=== PATIENT | male | born 1980 | race Caucasian/White ===

== ENCOUNTER 2017-01-31 16:03 | Inpatient (IN) | payer BC, OTHER ==
--- NOTE | 2017-01-31 16:59 | ED ---
Psych HPI - General Chief Complaint: Psychiatric Symptoms Stated Complaint: Psych - Suicidal Time Seen by Provider: 01/31/17 16:40 Source: patient, family, RN notes reviewed Mode of arrival: ambulatory - History of Present Illness Initial Comments: This is a 36-year-old male with history depression who has been having cyclic episodes of depression about every 3 weeks who states she's been in a very depressed state over last 2-3 days and has had thoughts of suicide though no apparent complaints this time. He does drink an occasional beer no street drugs are involved. He has no other medical problems. He currently is on medication he states he just feels profoundly depressed. MD Complaint: suicidal ideation, feels depressed - Related Data Home Medications Medication Instructions Recorded Confirmed Dextroamphetamine/Amphetamine 30 mg PO QAM 01/31/17 01/31/17 [Adderall Xr] Dextroamphetamine/Amphetamine 20 mg PO DAILY@1400 01/31/17 01/31/17 [Adderall] Venlafaxine HCl [Effexor XR] 150 mg PO DAILY 01/31/17 01/31/17 Allergies Allergy/AdvReac Type Severity Reaction Status Date / Time No Known Allergies Allergy Verified 06/24/15 13:04 Review of Systems ROS Statement: Those systems with pertinent positive or pertinent negative responses have been documented in the HPI. ROS Other: All systems not noted in ROS Statement are negative. 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 Absent: scleral icterus, conjunctival injection, periorbital swelling ENT exam: Present: normal exam, mucous membranes moist Neck exam: Present: normal inspection. Absent: tenderness, meningismus, lymphadenopathy Respiratory exam: Present: normal lung sounds bilaterally. Absent: respiratory distress, wheezes, rales, rhonchi, stridor Cardiovascular Exam: Present: regular rate, normal rhythm, normal heart sounds. Absent: systolic murmur, diastolic murmur, rubs, gallop, clicks GI/Abdominal exam: Present: normal bowel sounds. Absent: distended, tenderness , guarding, rebound, rigid Extremities exam: Present: normal inspection, full ROM, normal capillary refill. Absent: tenderness, pedal edema, joint swelling, calf tenderness Back exam: Present: normal inspection Neurological exam: Present: alert, oriented X3, CN II-XII intact Psychiatric exam: Present: depressed, suicidal ideation Skin exam: Present: warm, dry, intact, normal color. Absent: rash Course Vital Signs 01/31/17 01/31/17 16:09 20:00 Temperature 98.2 F Pulse Rate 78 71 Respiratory 16 18 Rate Blood Pressure 129/89 111/66 O2 Sat by Pulse 98 96 Oximetry Medical Decision Making - Medical Decision Making Patient was evaluated by psychiatric service she will be admitted for inpatient treatment. Disposition Clinical Impression: Depression, Suicidal ideation Disposition: TRANSFER TO PSYCH HOSP/UNIT Condition: Stable
[2017-01-31] MEDS ORDERED: MAG HYDROX/AL HYDROX/SIMETH 30 ML CUP PO PRN (20:06)
[2017-01-31] MEDS ORDERED: MAGNESIUM HYDROXIDE 2,400 MG/10 ML CUP PO PRN (20:06)
[2017-01-31] MEDS ORDERED: ACETAMINOPHEN TAB 325 MG TAB PO PRN (20:06)
[2017-01-31] MEDS ORDERED: LORazepam 1 MG TAB PO PRN (20:08)
[2017-01-31] MEDS: NICOTINE 21MG/24HR PATCH TRANSDERM SCH (21:49)
[2017-02-01 02:14] VITALS: BMI 23.1
[2017-02-01] MEDS ORDERED: VENLAFAXINE HCL ER 150 MG CAP PO SCH (09:00)
--- NOTE | 2017-02-01 09:34 | P.HP ---
Psychiatric H&P - . History & Physical: Allergies Allergy/AdvReac Type Severity Reaction Status Date / Time No Known Allergies Allergy Verified 02/01/17 02:15 Vital Signs Temp 97.8 F 02/01/17 06:32 Pulse 62 02/01/17 06:32 Resp 16 02/01/17 06:32 BP 115/59 02/01/17 06:32 Pulse Ox 96 01/31/17 20:00 Intake & Output 01/31/17 02/01/17 02/01/17 18:59 06:59 18:59 Weight 86.183 kg Laboratory Last Values Urine Opiates Screen Not Detected (NotDetected) 01/31/17 19:46 Ur Oxycodone Screen Not Detected (NotDetected) 01/31/17 19:46 Urine Methadone Screen Not Detected (NotDetected) 01/31/17 19:46 Ur Propoxyphene Screen Not Detected (NotDetected) 01/31/17 19:46 Ur Barbiturates Screen Not Detected (NotDetected) 01/31/17 19:46 U Tricyclic Antidepress Not Detected (NotDetected) 01/31/17 19:46 Ur Phencyclidine Scrn Not Detected (NotDetected) 01/31/17 19:46 Ur Amphetamines Screen Detected (NotDetected) H 01/31/17 19:46 U Methamphetamines Scrn Not Detected (NotDetected) 01/31/17 19:46 U Benzodiazepines Scrn Not Detected (NotDetected) 01/31/17 19:46 Urine Cocaine Screen Not Detected (NotDetected) 01/31/17 19:46 U Marijuana (THC) Screen Not Detected (NotDetected) 01/31/17 19:46 02/01/17 09:21 IDENTIFYING DATA: This patient is a 36-year-old male who was admitted through the emergency room for suicidal ideation and worsening symptoms of depression. HPI: The patient presented reporting worsening symptoms of depression over the last 6 months. He states that he has been tearful on a regular basis, has had less energy, and has been intermittently dealing with suicidal thoughts. The day prior to this presentation he had barricaded himself in the bathroom during an argument with his he made suicidal statements. Later he jumped out of the second story window of his home and went out into the [facility] for the evening and came back the next morning. He states that there have been several stressors at home including frequent arguments with his , significant financial constraints, and his was newly diagnosed with multiple sclerosis. He has been working with a psychiatrist a Dr. Argueta and feels that the Effexor XR has provided some benefit but clearly not enough at this point. He feels it was working for the last year but his depressive symptoms have come back in an insidious fashion. He states his sleep is been adequate at night appetite is been stable. He reports having social anxiety in context where he needs to share personal information. He states he has come a long way in terms of his social anxiety and is doing quite well in his work environment. He endorses no panic attacks. He endorses no hypomanic or manic episodes. He reports having no auditory or visual hallucinations he reports no specific delusions as we reviewed several types. No obsessive-compulsive thoughts or actions. He denies having any thoughts of harming others. He does have firearms at home as he and his are hunters. PAST PSYCHIATRIC HISTORY: Her inpatient psychiatric care, no history of suicide attempts. He is working with a psychiatrist in [place], Dr. Argueta. He is prescribed Effexor XR 150 mg daily he has been on that for 1 year, he is also on Adderall 30 mg in the morning and 20 mg in the afternoon and has been on that one year. It's unclear if he has an ADHD diagnosis he states he takes it "to improve my energy". He reports being on numerous other psychotropics in the past however he can only recall Zoloft. He is not yet working with an individual therapist but feels that could be beneficial and would like to do marital counseling as well. PMH: None reported ALLERGIES: NO KNOWN DRUG ALLERGIES MEDICATIONS: As above CHEMICAL DEPENDENCY HISTORY: He reports using alcohol daily having 1 beer after work during the weeknights and he states he will have approximately 12 beers on the weekends, no use of marijuana no use of other illicit drugs he has never been placed in residential treatment for chemical dependency reasons. FAMILY PSYCHIATRIC HISTORY: None reported, no suicides in the family FAMILY CHEMICAL DEPENDENCY HISTORY: None reported SOCIAL HISTORY: The patient is a 36-year-old male he has been for approximately 4 years he states his marriage is "it's a marriage". He indicates that they frequently have verbal altercations over a variety of reasons. He has 2 children both sons and a stepson that resides with them part of the time. 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 He reports that he was going to a trade program which has recently ended and he has just returned a $10 an hour increase. 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 No service. In terms of siblings he has a half-sister. He is originally from the [place] he was raised there. He endorses no legal history, he endorses no abuse history. MENTAL STATUS EXAM: The patient is a tall thin male appearing his stated age. His hair is shaved short eye contact is appropriate hygiene grooming adequate he is dressed in his own clothing. Speech is fluent spontaneous nonpressured. He endorses a depressed mood he has recently made suicidal statements but states "I would never do it" he reports no homicidal ideation intent or plan. He endorses no auditory or visual hallucinations and no specific delusions. He endorses no racing thoughts and he does not appear hypomanic or manic. Thought process is linear he demonstrates no circumstantial thought tangential thinking loose associations or flight of ideas. Insight and judgment grossly intact. He is reserved and guarded he expresses several times that he is uncomfortable talking about his personal information. Cognitively he is oriented to person place and date he is able to spell world backwards he is capable of remembering 3 objects after a brief delay. He demonstrates no verbal or physical aggressiveness. His affect remains bland throughout the session except towards the end of the session when he is tearful. STRENGTHS/WEAKNESSES: Strengths: Housing, income, willingness to be voluntarily treated weaknesses: Psychosocial dysfunction due to depressive symptoms INTELLECTUAL FUNCTIONING: Average IMPRESSIONS: [] 1. Major depressive disorder recurrent severe without psychosis, rule out ADHD 2. Stressors include marital discord, financial constraints, 's recent diagnosis of multiple sclerosis PLAN: The patient has been admitted to the mental health unit he has signed in voluntarily. We reviewed his presenting symptoms and medication options. We will increase the Effexor XR to 225 mg daily. We discussed also augmenting with Wellbutrin XL but he prefers to defer that decision to his outpatient psychiatrist. Social work will meet with the patient and complete a psychosocial assessment and begin discharge planning. We will arrange a support meeting likely including his . We will monitor him for safety and encourage his participation in the milieu. Laboratory studies and vital signs reviewed. He will undergo routine medical consultation with the turbinated bone grinder. We will discuss his use of alcohol during the hospitalization and we will address the presence of firearms in the home.
[2017-02-01] MEDS: NICOTINE 21MG/24HR PATCH TRANSDERM SCH (10:25)
[2017-02-01] MEDS: VENLAFAXINE HCL ER 75 MG CAP PO SCH (10:25)
[2017-02-01 11:02] LABS: Basophils # (A) 0.1 k/uL (0-0.2); Basophils % (A) 1 %; CH 32.3; CHCM 32.5; Eosinophils # (A) 0.1 k/uL (0-0.7); Eosinophils % (A) 2 %; HCT 46.7 % (39.0-53.0); HDW 2.52; HGB 15.2 gm/dL (13.0-17.5); Luc # (Auto) 0.14; Luc % (Auto) 3; Lymphocytes # (A) 1.5 k/uL (1.0-4.8); Lymphocytes % (A) 28 %; MCH 32.6 pg (25.0-35.0); MCHC 32.5 g/dL (31.0-37.0); MCV 100.1 fL (80.0-100.0); Monocytes # (A) 0.4 k/uL (0-1.0); Monocytes % (A) 7 %; Neutrophils # (A) 3.1 k/uL (1.3-7.7); Neutrophils % (A) 60 %; RBC 4.67 m/uL (4.30-5.90); RDW 13.6 % (11.5-15.5); WBC 5.3 k/uL (3.8-10.6); WBC (Perox) 5.33
[2017-02-01 11:25] LABS: ALT 39 U/L (21-72); AST 25 U/L (17-59); Alkaline Phosphatase 83 U/L (38-126); Anion Gap 9 mmol/L; Blood Urea Nitrogen 18 mg/dL (9-20); Calcium 9.9 mg/dL (8.4-10.2); Carbon Dioxide 29 mmol/L (22-30); Chloride 104 mmol/L (98-107); Glucose 104 mg/dL (74-99); Non-African American GFR(MDRD) >60 (>60 ml/min/1.73 sqM); Sodium 142 mmol/L (137-145); Total Protein 7.2 g/dL (6.3-8.2)
--- NOTE | 2017-02-01 23:11 | CONS ---
DATE OF CONSULTATION: 02/01/2017 REASON FOR CONSULTATION: Medical management requested by Dr. Del Valle. CONSULTATION: This is a pleasant 36-year-old patient of Dr. Diop. Patient has a history of depression in the past. Patient was having trouble with his and financial issues. has been diagnosed with MS. Patient presented with major depression and suicidal ideations, admitted for the same. Patient has a history of splenectomy. Patient is a smoker. REVIEW OF SYSTEMS: CONSTITUTIONAL: None. HEENT: None. RESPIRATORY: None. CARDIOVASCULAR: None. GASTROINTESTINAL: None. GENITOURINARY: None. MUSCULOSKELETAL: Some lower back pain. DERMATOLOGICAL: Tattoos. HEMATOLOGICAL: None. LYMPHATICS: None. PSYCHIATRY: Depression. NEUROLOGICAL: None. PAST MEDICAL HISTORY: 1. Chronic low back pain. 2. Depression. PAST SURGICAL HISTORY: 1. Splenectomy. 2. Lower back surgery. SOCIAL HISTORY: Smokes a pack to a pack and a half a day. Drinks variable amounts of beer. . Employed at local [employer] HOME MEDICATIONS: 1. Effexor XR 150 mg a day. 2. Adderall 20 mg daily at 2 p.m. and 30 mg in the morning. ALLERGIES: NONE. On examination, temperature 97.8, pulse 82, respiration 16, blood pressure 115/59, pulse ox 96% on room air. GENERAL APPEARANCE: Average build. Lying in bed. Not in distress. EYES: Pupils equal. Conjunctivae normal. HEENT: Oral cavity normal. NECK: JVD not raised. Mass not palpable. RESPIRATORY: Effort normal. LUNGS: Fair air entry. CARDIOVASCULAR: First and second sounds normal. No edema. ABDOMEN: Soft, nontender. Liver and spleen not palpable. LYMPHATIC: No lymph node palpable in neck or axillae. PSYCHIATRY: Alert and oriented x3. Mood and affect slightly anxious-appearing. NEUROLOGICAL: Pupils equal. Cranial nerves grossly intact. Power and sensation grossly intact. INVESTIGATIONS: White count 5.3, hemoglobin 15.2. Urine drug screen positive for amphetamines. ASSESSMENT: 1. Major depressive disorder, recurrent, with no psychotic features. 2. Splenectomy, history of. 3. Chronic nicotine dependence with cigarettes. PLAN: Patient advised against smoking, given a nicotine patch. Antidepressants per Dr. Del Valle. Patient should follow up with Dr. Diop upon discharge. Thank you, Dr. Del Valle.
[2017-02-02 06:39] VITALS: BP 128/73; PULSE 65; RESP 18; TEMP 98
--- NOTE | 2017-02-02 09:19 | P.DS ---
Providers Date of admission: 01/31/17 20:02 Expected date of discharge: 02/02/17 Attending physician: Paddy Del Valle Consults: 01/31/17 20:06 Consult Physician Routine Consulting Provider: Guillermo Armando Consult Reason/Comments: H and P Do you want consulting provider notified?: Yes Primary care physician: Tejas Diop - Discharge Diagnosis(es) (1) Major depressive disorder, recurrent severe without psychotic features Current Visit: Yes Status: Acute Priority: High Hospital Course: Brief summary of admission note: This patient is a 36-year-old male who was admitted through the emergency room to the mental health unit for suicidal ideation and worsening symptoms of depression. The patient reported symptoms of depression worsening over the last 6 months he reported being tearful reporting less energy and overwhelmed with stressors. Him and his had been enduring financial strain over the last several months and he reports they have been frequently arguing. Additionally she was diagnosed with multiple sclerosis. The patient has been working with an outpatient psychiatrist, Dr. Argueta. He had been placed on Effexor XR about 1 year ago and felt that it was helpful but seems to have lost some affect. For full details please refer to my psychiatric evaluation dated 02/01/2017. Summary of hospital course: The patient was admitted to the mental health unit he did sign in voluntarily. Yesterday however he did sign the form withdrawing his voluntary status. We did review his presenting symptoms we decided to continue the Effexor XR and titrate the dose to 225 mg. We discussed the possibility of augmenting with Wellbutrin XL but he preferred not to. He states that he would never act on any suicidal thinking and he admits that he had been making those statements to "get some help". He feels uncomfortable in this environment and feels that he needs to work with an individual therapist and his outpatient psychiatrist further. The patient's did not attend groups he demonstrated no agitated behavior he has been pleasant and cooperative. He did undergo routine medical consultation. Social work has spoken with his and his is also coming up for a support meeting scheduled for this morning. We discussed the patient's use of alcohol and recommended that he discontinue alcohol use. He does not feel that he requires inpatient chemical dependency treatment. He reported that he had firearms in the home social work has spoken with his and she has told social work that the weapons have been removed. Mental status exam: The patient is a tall thin male he seated calmly eye contact is appropriate. He states his mood is "fine" he maintains a constricted affect. There is no tearfulness he does not appear dysphoric. He reports having no suicidal or homicidal ideation intent or plan. He states he regrets making those statements as he does not need to be in this environment. He reports no auditory or visual hallucinations he endorses no specific delusions. He endorses no racing thoughts there is no evidence of hypomanic or manic symptoms. He demonstrates no verbal or physical aggressiveness. He is pleasant and cooperative throughout the interview. He remains oriented to person place and date he remains grossly cognitively intact. Thinking is linear there is no evidence of tangential thinking loose associations or flight of ideas. Impressions 1. Major depressive disorder recurrent severe without psychosis, rule out ADHD , rule out alcohol use disorder 2. Psychosocial stressors include marital discord, financial concerns, 's diagnosis of multiple sclerosis Plan: The patient will be discharged mental health unit today following a successful meeting with his facilitated by social work. He will continue on Effexor XR 225 mg daily. He plans to follow-up with his outpatient psychiatrist Dr. Argueta. He is encouraged to work with an individual therapist and he wants to also do marital counseling. Social work will help arrange his outpatient follow-up. He is instructed not to use any alcohol. There is no imminent safety risk he is appropriate for transition outpatient care. He is instructed to return to the hospital with any acute safety concerns. The patient has been prescribed a total of 50 mg of Adderall per day. This was not continued on the mental health unit. His outpatient psychiatrist has been managing that medication. Patient Condition at Discharge: Stable Plan - Discharge Summary New Discharge Prescriptions: Nicotine 21Mg/24Hr Patch [Habitrol] 1 patch TRANSDERM DAILY #14 patch Venlafaxine HCl ER [Effexor XR] 225 mg PO DAILY #90 cap.er.24h Discharge Medication List Venlafaxine HCl [Effexor XR] 150 mg PO DAILY 01/31/17 [History] Nicotine 21Mg/24Hr Patch [Habitrol] 1 patch TRANSDERM DAILY #14 patch 02/02/17 [ Rx] Venlafaxine HCl ER [Effexor XR] 225 mg PO DAILY #90 cap.er.24h 02/02/17 [Rx] Follow up Appointment(s)/Referral(s): Tejas Diop MD [Primary Care Provider] - 1 Week
[2017-02-02] MEDS: VENLAFAXINE HCL ER 75 MG CAP PO SCH (09:25)
[2017-02-02] MEDS: NICOTINE 21MG/24HR PATCH TRANSDERM SCH (09:27)
== END 2017-02-02 12:18 | disposition home or self-care (01) | DRG 885 ==
LOC: EC 16:03 → 3MHU 20:02
PROVIDERS: ADMIT Psychiatry & Neurology Psychiatry; ATTEND Psychiatry & Neurology Psychiatry
DX: F33.2 Major depressive disorder, recurrent severe without psychotic features (principal); R45.851 Suicidal ideations; F17.210 Nicotine dependence, cigarettes, uncomplicated
CPT/HCPCS: 80053; 80306; 82075; 84443; 85025; 99285

== ENCOUNTER 2023-03-09 20:53 | Emergency (ER) | payer BC, OTHER ==
[2023-03-09] MEDS ORDERED: SODIUM CHLORIDE 0.9% 500 ML 500 ML IV STA (21:11)
[2023-03-09] MEDS ORDERED: HYDROmorphone 1 MG/ML 1 ML SYRINGE IVP STA ×2 (21:11→23:17)
--- NOTE | 2023-03-09 22:04 | CT ---
EXAMINATION TYPE: CT lumbar spine wo con CT DLP: 1550.5 mGycm, Automated exposure control for dose reduction was used. DATE OF EXAM: 03/09/2023 9:38 PM COMPARISON: None CLINICAL INDICATION:Male, 42 years old with history of fall from horse;, fell from and pinned by hors e. back pain TECHNIQUE: Multiple axial images were obtained from the midportion of T11 through the sacroiliac mabel nts. Soft tissue and bone windows in coronal and sagittal planes were obtained and reviewed. 3-D ref ormats of the bones were created on a separate workstation and submitted for review. Contrast used: none. Oral contrast used: none. FINDINGS: Alignment: There are 5 lumbar type vertebral bodies within normal alignment. Bone: Acute fracture through the L1 superior endplate which extends into the anterior aspect of the L 1 vertebral body. There is less than 20% height loss no evidence of retropulsion or significant spina l canal or neural foraminal stenosis. No additional fractures definitively visualized. There is mild osteophyte formation and degeneration with Schmorl's nodes and endplate sclerosis throughout the spin e. Postsurgical changes with hardware in place. Hardware appears intact there is fixation screws from L3 to S1. Discectomy changes at L4-L5 and L5-S1. Discs: T12-L1: No spinal canal or neural foraminal stenosis is identified. L1-L2: No spinal canal or neural foraminal stenosis is identified. L2-L3: No spinal canal or neural foraminal stenosis is identified. L3-L4: No spinal canal is identified. Bilateral mild to moderate neural foraminal stenosis secondary to facet joint arthropathy and osteophyte formation. L4-L5: No spinal canal or neural foraminal stenosis is identified. L5-S1: No spinal canal or neural foraminal stenosis is identified. Other: None IMPRESSION: Acute fracture of the L1 vertebral body with less than 20% height loss. No retropulsion of significan t spinal canal or neural foraminal stenosis.
[2023-03-09 23:28] VITALS: BP 129/80; PULSE 84; RESP 19
--- NOTE | 2023-03-09 23:43 | ED ---
Back Pain HPI - General Chief Complaint: Back Pain/Injury Stated Complaint: Lower back pain Time Seen by Provider: 03/09/23 20:59 Source: patient Limitations: no limitations - History of Present Illness Initial Comments: This patient is a 42-year-old man who presents to have evaluation after he states he was injured by a horse. Patient states this happened just prior to coming here. The patient relates he was attempting to the horse trailer, when the horse knocked him into the wall of it. The patient denies weakness or numbness of the extremities. No saddle anesthesia. Has not noted bladder or bowel changes. Complains of lumbar pain worse with movement. MD Complaint: back pain -: hour(s) Similar Symptoms Previously: No Place: other Radiation: none Severity: severe Quality: sharp Consistency: constant Improves With: immobilization Worsens With: movement Context: other Associated Symptoms: denies other symptoms - Related Data Home Medications Medication Instructions Recorded Confirmed Venlafaxine HCl [Effexor XR] 150 mg PO DAILY 01/31/17 02/01/17 Previous Rx's Medication Instructions Recorded Nicotine 21Mg/24Hr Patch [Habitrol] 1 patch TRANSDERM DAILY #14 patch 02/02/17 Venlafaxine HCl ER [Effexor XR] 225 mg PO DAILY #90 cap.er.24h 02/02/17 HYDROcodone/APAP 7.5-325MG [[place] 1 tab PO Q4H PRN 3 Days #18 tab 03/09/23 7.5-325] Allergies Allergy/AdvReac Type Severity Reaction Status Date / Time No Known Allergies Allergy Verified 02/01/17 02:15 Review of Systems ROS Statement: Those systems with pertinent positive or pertinent negative responses have been documented in the HPI. ROS Other: All systems not noted in ROS Statement are negative. Constitutional: Denies: fever Respiratory: Denies: cough, dyspnea Cardiovascular: Denies: chest pain, syncope Gastrointestinal: Denies: abdominal pain, vomiting, diarrhea, constipation Genitourinary: Denies: dysuria, hematuria, testicular pain Musculoskeletal: Reports: as per HPI, back pain Skin: Denies: rash Neurological: Denies: headache, weakness, numbness, paresthesias Past Medical History Past Medical History: No Reported History Additional Past Medical History / Comment(s): chronic back pain, fusion lower back History of Any Multi-Drug Resistant Organisms: None Reported Past Surgical History: Back Surgery 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 Absent: scleral icterus, conjunctival injection Neck exam: Present: normal inspection, full ROM. Absent: tenderness Respiratory exam: Present: normal lung sounds bilaterally. Absent: respiratory distress, wheezes, rales, rhonchi, stridor Cardiovascular Exam: Present: regular rate, normal rhythm, normal heart sounds. Absent: systolic murmur, diastolic murmur, rubs, gallop GI/Abdominal exam: Present: soft. Absent: distended, tenderness, guarding, rebound, rigid, mass, pulsatile mass Extremities exam: Present: normal inspection, normal capillary refill. Absent: pedal edema, calf tenderness Back exam: Present: normal inspection, paraspinal tenderness, vertebral tenderness, other (The patient has tenderness to palpation at approximately the L1-L2 level. There is no apparent step-off.). Absent: CVA tenderness (R), CVA tenderness (L) Neurological exam: Present: alert, reflexes normal. Absent: motor sensory deficit Skin exam: Present: warm, dry, intact, normal color. Absent: rash Course Vital Signs 03/09/23 03/09/23 03/09/23 20:54 21:16 22:12 Pulse Rate 92 94 91 Respiratory 18 18 18 Rate Blood Pressure 116/92 116/92 122/72 O2 Sat by Pulse 96 97 97 Oximetry 03/09/23 23:27 Pulse Rate 84 Respiratory 19 Rate Blood Pressure 129/80 O2 Sat by Pulse 98 Oximetry Medical Decision Making - Medical Decision Making This patient is 42-year-old man with back pain after injury by horse. The patient had analgesic provided after history and physical. The patient went for computed tomography scan of the low back which I interpreted to reveal some compression fracture of the L1 vertebra. No evident intrusion into spinal canal. I did discuss the case with orthopedic surgery on-call. They will have patient follow in the clinic seeing the back specialist. I discussed appropriate further care and follow-up as well as return parameters. The patient did have good relief with analgesia here. Was pt. sent in by a medical professional or institution (KELLY Lancaster, DIET SUPERVISOR, urgent care, hospital, or custodial...) When possible be specific @ -[No] Did you speak to anyone other than the patient for history (EMS, parent, family, police, friend...)? What history was obtained from this source @ -[No] Did you review nursing and triage notes (agree or disagree)? Why? @ -[I reviewed and agree with nursing and triage notes] Were old charts reviewed (outside hosp., previous admission, EMS record, old EKG, old radiological studies, urgent care reports/EKG's, custodial records)? Report findings @ -[No old charts were reviewed] Differential Diagnosis (chest pain, altered mental status, abdominal pain women, abdominal pain men, vaginal bleeding, weakness, fever, dyspnea, syncope, headache, dizziness, GI bleed, back pain, seizure, CVA, palpatations, mental health, musculoskeletal)? @ -[Differential Back Pain: Strain, zoster, cauda equina syndrome, epidural abscess, vertebral osteomyelitis, discitis, fracture, subluxation, disc herniation, DJD, spinal stenosis, dissection, AAA, pancreatitis, peptic ulcer disease, pyelonephritis, kidney stone, this is not meant to be an all-inclusive list. EKG interpreted by me (3pts min.). @ -[ X-rays interpreted by me (1pt min.). @ -[None done] CT interpreted by me (1pt min.). @ -[As above U/S interpreted by me (1pt. min.). @ -[None done] What testing was considered but not performed or refused? (CT, X-rays, U/S, labs)? Why? @ -[None] What meds were considered but not given or refused? Why? @ -[None] Did you discuss the management of the patient with other professionals (professionals i.e. KELLY Lancaster, DIET SUPERVISOR, lab, RT, psych nurse, licensed social worker, process safety manager, teacher, toxics program officer, case fitter)? Give summary @ -[Case is discussed with orthopedics secondary special education teacher Was smoking cessation discussed for >3mins.? @ -[No] Was critical care preformed (if so, how long)? @ -[No] Were there social determinants of health that impacted care today? How? (Homelessness, low income, unemployed, alcoholism, drug addiction, transportation, low edu. Level, literacy, decrease access to med. care, halfway, rehab)? @ -[No] Was there de-escalation of care discussed even if they declined (Discuss DNR or withdrawal of care, Hospice)? DNR status @ -[No] What co-morbidities impacted this encounter? (DM, HTN, Smoking, COPD, CAD, Cancer, CVA, ARF, Chemo, Hep., AIDS, mental health diagnosis, sleep apnea, morbid obesity)? @ -[None] Was patient admitted / discharged? Hospital course, mention meds given and route, prescriptions, significant lab abnormalities, going to OR and other pertinent info. @ -[Discharged after the case was discussed with orthopedics and the patient did have significant symptomatic relief. Appropriate further care and follow-up discussed. Return parameters discussed Undiagnosed new problem with uncertain prognosis? @ -[No] Drug Therapy requiring intensive monitoring for toxicity (Heparin, Nitro, Insulin, Cardizem)? @ -[No] Were any procedures done? @ -[No] Diagnosis/symptom? @ -[Acute L1 lumbar fracture, uncomplicated Acute, or Chronic, or Acute on Chronic? @ -[default] Uncomplicated (without systemic symptoms) or Complicated (systemic symptoms)? @ -[default] Side effects of treatment? @ -[No] Exacerbation, Progression, or Severe Exacerbation? @ -[No] Poses a threat to life or bodily function? How? (Chest pain, [place], [place], pneumonia, PE, COPD, DKA, ARF, appy, cholecystitis, CVA, Diverticulitis, Homicidal, Suicidal, threat to staff... and all critical care pts) @ -[No] Disposition Clinical Impression: L1 vertebral fracture Disposition: HOME SELF-CARE Condition: Good Instructions (If sedation given, give patient instructions): Thoracolumbar Fracture (ED) Prescriptions: HYDROcodone/APAP 7.5-325MG [[place] 7.5-325] 1 tab PO Q4H PRN 3 Days #18 tab PRN Reason: Pain Is patient prescribed a controlled substance at d/c from ED?: Yes Referrals: Tejas Diop MD [Primary Care Provider] - 1-2 days Shoshana Emanuel DO [Doctor of Osteopathic Medicine] - 1-2 days
[2023-03-10] MEDS ORDERED: ACET/COD 300 MG/30 MG STARTER PACK 6 TAB BTL PO STA (00:08)
== END 2023-03-10 00:36 | disposition home or self-care (01) ==
LOC: EC 20:53
DX: S32.019A Unspecified fracture of first lumbar vertebra, initial encounter for closed fracture (principal); F41.9 Anxiety disorder, unspecified; F31.9 Bipolar disorder, unspecified; Z79.899 Other long term (current) drug therapy; W55.12XA Struck by horse, initial encounter
CPT/HCPCS: 72131; 99284; 96374; 96376; 96361 ×2; J1170